=== PATIENT | male | born 1985 | race Caucasian/White ===

== ENCOUNTER 2016-06-28 10:05 | Emergency (ER) | payer BC, MEDICAID ==
[2016-06-28 10:18] VITALS: BP 137/90
[2016-06-28] MEDS ORDERED: KETOROLAC TROMETHAMINE 60 MG/2 ML VIAL IM ONE ×2 (10:30→10:41)
[2016-06-28] MEDS ORDERED: ACETAMINOPHEN 650 MG SUPP.RECT ONE (10:46)
--- NOTE | 2016-06-28 10:50 | ERNOTE ---
Back Pain ER HPI Date of Service: 06/28/16 Time Seen by Provider: 06/28/16 10:24 Source: patient Exam Limitations: no limitations Immunizations: IMMUNIZATION HX Immunizations Up to Date Yes History of Influenza Vaccine No Hx Pneumococcal Vaccination No Allergies/Adverse Reactions: Allergies acetaminophen [From Vicodin] Allergy (Mild, Verified 06/28/16 10:18) Itching codeine [Codeine] Allergy (Mild, Verified 06/28/16 10:18) Itching hydrocodone bitartrate [From Vicodin] Allergy (Mild, Verified 06/28/16 10:18) Itching Home Medications: HOME MEDICATIONS Esomeprazole Magnesium [Nexium] 20 mg PO DAILY 11/29/14 [Last Taken Unknown] Levofloxacin [Levaquin] 750 mg PO DAILY #10 tab 06/28/16 [Last Taken Unknown] Lubiprostone [Amitiza] 8 mcg PO BID 06/28/16 [Last Taken Unknown] Naproxen [Naprosyn] 500 mg PO BID PRN #60 tab 06/28/16 [Last Taken Unknown] Narrative: Pt. comes in with c/o back pain that started in the evening 4 days ago. Pt. denies any injury but does state that it worsens with a deep breath or cough but is not changed by palpation. Pt. does state that he has had a cough for three weeks and has purulent sputum. Pt. denies any SOB at rest, but does state that he has some mild SOB with activity. Pt. states that he has been taking Tylenol without relief. Review of Systems - Review of Systems Constitutional: Present: recent illness. Absent: fever, chills, weakness, fatigue, malaise EYE: Present: no symptoms reported ENT: Present: no symptoms reported Respiratory: Present: cough. Absent: shortness of breath, orthopnea, wheezing Cardiology: Present: no symptoms reported. Absent: chest pain, palpitations, edema Gastrointestinal/Abdominal: Present: no symptoms reported. Absent: nausea, vomiting, diarrhea Genitourinary: Present: no symptoms reported Musculoskeletal: Present: back pain - R upper back from T4-t10 Skin: Present: no symptoms reported. Absent: rash, change in color Neurological: Present: no symptoms reported. Absent: headache, dizziness/light- headedness, numbness, tingling All Other Systems: All systems neg except as marked - Patient's Past Medical History Patient History - Medical: GERD Patient History - Cardiac/Respiratory: Other - history of collapsed lung Patient History - Cancer: No Hx of Cancer Patient History - Surgical Procedures: Colonoscopy, EGD, Pneumothorax, Vasectomy - Family History Mother Family History - Medical: No pertinent hx Family History - Cardiac/Respiratory: Hypertension, Other Father Family History - Medical: No pertinent hx Family History - Cardiac/Respiratory: No pertinent hx - Social History Living Situations: spouse Smoking Status: Former smoker Have you smoked in the past 12 months: No Do you dip or chew tobacco: Yes Patient requests Smoking Cessation Consult: No Initiate information on Smoking Cessation: No Alcohol Use: rarely Drug Use: none Physical Exam - Physical Exam General Appearance: Present: wd/wn, alert, no apparent distress Eye Exam: Normal inspection: bilateral, PERRL: bilateral, EOMI: bilateral Ears, Nose, Throat: Present: hearing grossly normal, nasal congestion, sinus pain/drainage, normal pharynx Neck: Present: normal inspection, nontender. Absent: lymphadenopathy (R), lymphadenopathy (L) Respiratory: Present: no respiratory distress, no accessory muscle use, chest nontender, decreased breath sounds - LLL, rhonchi - RUL clears with cough Cardiovascular/Chest: Present: regular rate, rhythm, no murmur, normal peripheral pulses Gastrointestinal/Abdominal: Present: normal bowel sounds, nontender, nondistended, soft, no organomegaly Back Exam: Present: normal inspection, normal range of motion, no CVA tenderness , no vertebral tenderness Extremity Exam: Present: normal inspection, non-tender, no edema, normal range of motion Neurological Exam: Present: alert, oriented, normal mood/affect, no motor/ sensory deficits Skin Exam: Present: warm/dry, pallor. Absent: skin rash ED Progress - Vital Signs Patient's Vital Signs:: I have reviewed the patient's vital signs. Vital Signs: Vital Signs 06/28/16 10:12 Temperature 34.9 C L Pulse Rate 73 Respiratory 16 Rate Blood Pressure 137/90 O2 Sat by Pulse 99 Oximetry - X-Ray X-Ray #1 X-Ray: chest Interpretation: Interp. by me X-ray Comments: bronchial cuffing no consolidations - Progress/Reassessment Chief Complaint: Back Pain Departure Clinical Impression: Chest wall pain Acute bronchitis Qualifiers: Bronchitis organism: unspecified organism Qualified Code(s): J20.9 - Acute bronchitis, unspecified - Departure Disposition: Home self-care Condition: Good Instructions: Acute Bronchitis, [id number] Additional Instructions: Please follow up with primary provider in 2-3 days. Please take anti inflammatory for pain as prescribed. Please finish all antibiotics. May try a visit with the chiropractor for adjustment of back and ribs. Referrals: Vaibhav Pace MD [Primary Care Provider] - Prescriptions: Levofloxacin [Levaquin] 750 mg PO DAILY #10 tab Naproxen [Naprosyn] 500 mg PO BID PRN #60 tab PRN Reason: Pain
== END 2016-06-28 11:11 | disposition home or self-care (01) ==
LOC: ER 10:05
DX: R07.89 Other chest pain (principal); J20.9 Acute bronchitis, unspecified; Z87.891 Personal history of nicotine dependence

== ENCOUNTER 2016-08-28 09:53 | Day surgery (SDC) | payer BC, MEDICAID ==
[~2016-08-28 09:53] MED LIST: RINGERS SOLUTION,LACTATED 1,000 ML IV PRN; ceFAZolin SODIUM 1 GM VIAL IV PRN
--- OUTSIDE RECORDS SUMMARY | 2016-08-28 09:57 | XMS REPORT | Continuity of Care Document ---
:1985 Author Organization [facility] ([facility]) Address [address] [place] [address] Phone [phone] Care Team Providers Name Role Phone Unavailable Primary Care Provider Unavailable Source Comments This disclosure is being made pursuant to the Care Everywhere program, applicable federal and state laws, and may not contain all informaitonavailable regarding this patient.[facility] ([facility]) Active Allergies and Adverse Reactions Not on File Current Medications Not on file Active Problems Not on file Social History Tobacco Use Types Packs/Day Years Used Date Never Assessed Plan of Care Health Maintenance Due Date Last Done Comments Hepatitis B Vaccine (1 of 3 - Primary Series) 1985 Tdap Vaccine 12/22/1995 Lipid Disorder Screening 2002 MMR Vaccine 2002 Td Vaccine 2002 Varicella Vaccine (1 of 2 - Adult - No Evidence of 2002 Immunity) Influenza Vaccine: Seasonal (#1) 01/20/2016 Results from Last 3 Months Not on file
[2016-08-28] MEDS ORDERED: RINGERS SOLUTION,LACTATED 1,000 ML IV ONE (10:31)
[2016-08-28] MEDS ORDERED: BUPIVACAINE HCL 50 ML VIAL IJ ONE ×2 (11:40)
[2016-08-28 13:14] VITALS: BP 124/75
--- NOTE | 2016-08-28 15:25 | OR ---
Operative Report - Dictated Report Narrative: Date: 08/28/2016 Physician: Wili Clements M.D. [employer] Motor [employer] Generator Assembler: Ghassan Welch PA-C Preoperative diagnosis: Right carpal tunnel syndrome, right de Quervain's tenosynovitis Postoperative diagnosis: Right carpal tunnel syndrome, right de Quervain's tenosynovitis Procedure: Endoscopic right carpal tunnel release, release of first dorsal wrist compartment Anesthesia: MAC plus local Complications: None Estimated blood loss: Minimal Tourniquet time: 18 Minutes at 250 mmHg Specimens: None Retained implants: None Drains: None Indications: Mr. Soria Is a 30 who has been followed in my clinic with complaints of carpal tunnel syndrome as well as de Quervain's tenosynovitis. Physical exam as well as diagnostic testing showed compression of the median nerve compatible with carpal tunnel syndrome and his exam was consistent with de Quervain's tenosynovitis. Conservative measures have failed including but not limited to activity modification, medications, and/or bracing. The risks, benefits, and alternatives were discussed in clinic. The risks being bleeding, infection, nerve, tendon, blood vessel injury, persistent pain, wound competitions, weakness, palm pain, need for additional procedures, and persistent symptoms. Consent was obtained in the clinic. Procedure: After marking the correct extremity in the preoperative holding area, a timeout was performed in the operating room. IV antibiotics consisting of Ancef were administered prior to the procedure. A well-padded tourniquet was applied to the operative upper arm. The arm was exsanguinated and the tourniquet was inflated to 250 mmHg. 0.5% Marcaine without epinephrine was infused into the projected portal sites. Using Loupe magnification, a transverse incision was made in the proximal wrist flexion crease just ulnar to the ulnar to the palmaris longus tendon or in line with approximately the ring finger. Blunt dissection and hemostasis with bipolar cautery was utilized down to the forearm fascia. The forearm fascia was split longitudinally just ulnar to the palmaris longus exposing the entry into the carpal tunnel. A Lazbuddie was placed under the transverse carpal ligament elevating the soft tissues under the dorsal aspect of the transverse carpal ligament. This was confirmed to be under the transverse carpal ligament based on the corrugated nature of the tissue. Once we had removed soft tissues from the transverse carpal ligament, a blunt trocar and cannula was introduced under the transverse carpal ligament exiting the palm through a sofy incision. The hand was then placed in a extension holding device and the camera was introduced into the cannula. A probe was utilized in order to ensure that all soft tissues were elevated off the dorsal aspect of the transverse carpal ligament and ensuring that all tissues were running transversely. No vascular or neurologic tissues were visualized. The push, followed by probe, followed by hook blades was utilized to transect the distal one half of the transverse carpal ligament. This allowed for ingress of fat. The camera was then placed distally looking proximally, and the proximal one half of the transverse carpal ligament was transected using the hook blade. This again allowed for ingress of fat. The probe blade was utilized in order to release any additional remaining fibers. Once it was felt that the transverse carpal ligament was completely transected, the blunt trocar was reintroduced into the trocar and removed in whole. A Ragnell was utilized in order to visualize the carpal tunnel ensuring that the transverse carpal ligament was completely released using a Lazbuddie. The distal forearm fascia was released ensuring that the median nerve was completely decompressed utilizing tenotomy scissors. Once it was felt that all the tissues overlying the median nerve were completely released, the wounds were thoroughly irrigated with saline which passed freely from the proximal to distal portal holes. Next attention was turned to the first dorsal wrist compartment. A transverse incision was made approximately 1 cm proximal to the radial styloid. Blunt dissection was carried through the skin in order to protect the dorsal branches of the radial nerve surroundings neurovascular structures. Blunt dissection was also carried down to the extensor pollicis brevis and the abductor pollicis longus. The first dorsal compartment was released the dorsal aspect and it was noted there was a thin septum the 2 tendons as well as a distal muscle belly on the extensor pollicis brevis. Once was felt that we adequately released these tendons over the entire course of the retinaculum, a Z-plasty was performed of the retinaculum in order to place one suture to prevent future and stability. This was notably loose and did not result in any overall compression of the tendons. The risks placed through range of motion and it was noted that there is no instability. The thumb was placed through range of motion and it was also noted that there is no catching or instability. Additional half percent Marcaine was infused around the skin edges and the wounds were thoroughly irrigated. Tourniquet was deflated and hemostasis was obtained with pressure as well as bipolar cautery. Once bleeding had resolved and there was no excessive bleeding , the wounds were closed with interrupted nylon for the carpal tunnel. For the de Quervain's release the skin was closed with interrupted Vicryl and interrupted nylon. Xeroform, 4 x 4's, soft roll, and a well-padded dorsal short arm wrist splint was applied, and the patient was awoken and transferred to the postanesthesia care unit in stable condition. All sponge, needle, blade , and instrument counts were correct prior to closing the wounds. Additional 0.5% Marcaine without epinephrine was infused into the skin edges for pain control.
== END 2016-08-28 09:54 | disposition home or self-care (01) ==
LOC: AMB 09:53
PROVIDERS: ATTEND Orthopaedic Surgery
PROC: 01N54ZZ Release Median Nerve, Percutaneous Endoscopic Approach (ICD-10-PCS; principal; 2016-08-28 12:55)
PROC: 0LN50ZZ Release Right Lower Arm and Wrist Tendon, Open Approach (ICD-10-PCS; 2016-08-28 12:55)
DX: G56.01 Carpal tunnel syndrome, right upper limb (principal); M65.4 Radial styloid tenosynovitis [de Quervain]; R12 Heartburn; K58.9 Irritable bowel syndrome, unspecified; Z68.22 Body mass index [BMI] 22.0-22.9, adult; Z87.891 Personal history of nicotine dependence

== ENCOUNTER 2017-01-11 17:21 | Emergency (ER) | payer BC, MEDICAID ==
--- NOTE | 2017-01-11 17:47 | ERNOTE ---
Time Seen by Provider: 01/11/17 17:27 Stated Complaint: BREATHING ISSUES Presenting Symptoms:: cough Source: patient Exam Limitations: no limitations Immunizations: IMMUNIZATION HX Immunizations Up to Date Yes History of Influenza Vaccine No Hx Pneumococcal Vaccination No Allergies/Adverse Reactions: Allergies codeine [Codeine] Adverse Reaction (Mild, Verified 08/28/16 10:11) Itching, RASH hydrocodone bitartrate [From Vicodin] Adverse Reaction (Mild, Verified 08/28/16 10:11) Itching Home Medications: HOME MEDICATIONS Lubiprostone [Amitiza] 8 mcg PO BID 06/28/16 [Last Taken Unknown] Acetaminophen [Tylenol] 325 - 650 mg PO Q4H PRN 08/20/16 [Last Taken Unknown] Esomeprazole Magnesium [Nexium] 20 mg PO DAILY 08/20/16 [Last Taken Unknown] Gabapentin [Neurontin] 100 mg PO TID 08/20/16 [Last Taken Unknown] Vitamin D3 Complete 1 tab PO DAILY 08/20/16 [Last Taken Unknown] oxyCODONE HCL/ACETAMINOPHEN [Percocet 5 MG/325 MG] 1 - 2 tab PO Q4H PRN #60 tab 08/28/16 [Last Taken Unknown] - History of Present Ilness Narrative: Patient has had a cough for a couple of days. Last night he started to have slight pain by his left shoulder blade, he was able to sleep but had more pain this am, has not taken any pain meds yet, pain is worse with coughing, deep breath and moving. He is concerned as he had a spontaneous pneumothorax about ten years ago and thinks this feels similar to that Frequency/Possible Cause: Reports: occasional episodes Modifying Factors - Worsens: Reports: coughing, deep breath Associated Symptoms: Denies: headache, fever/chills Prior Treatment: Denies: recently seen, currently on antibiotics Review of Systems - Review of Systems Constitutional: Absent: fever, chills ENT: Absent: nose congestion, nasal drainage, sore throat Respiratory: Present: See HPI, cough Cardiology: Absent: chest pain Gastrointestinal/Abdominal: Absent: nausea, vomiting, diarrhea, abdominal pain Genitourinary: Present: no symptoms reported Musculoskeletal: Absent: back pain Skin: Absent: rash Neurological: Absent: headache, weakness, numbness - Patient's Past Medical History Patient History - Medical: GERD, Other - anger problems Patient History - Cardiac/Respiratory: No pertinent hx Patient History - Cancer: No Hx of Cancer Patient History - Surgical Procedures: Colonoscopy, EGD, Pneumothorax, Vasectomy , Orthopedic Patient History - Other: None - Family History Mother Family History - Medical: No pertinent hx Family History - Cardiac/Respiratory: Hypertension, Other Father Family History - Medical: No pertinent hx Family History - Cardiac/Respiratory: No pertinent hx Family History - Cancer: No pertinent family hx - Social History Living Situations: home Abuse History: No History of abuse Psych History: Psychiatric Hx, Current tx/ever been on anti-depressants or anti- anxiety meds Smoking Status: Former smoker Have you smoked in the past 12 months: Yes Do you dip or chew tobacco: Yes Alcohol Use: rarely Drug Use: none - Immunizations Immunizations Up to Date: Yes Hx Pneumococcal Vaccination: No History of Influenza Vaccine: No Physical Exam - Physical Exam General Appearance: Present: wd/wn, alert, no apparent distress Eye Exam: Normal inspection: bilateral, PERRL: bilateral Ears, Nose, Throat: Present: normal ENT inspection, normal pharynx Neck: Absent: lymphadenopathy (L) Respiratory: Present: no respiratory distress, normal breath sounds, no accessory muscle use, lungs clear, chest tenderness - muscle spasm and tenderness left side between scapular and spine Cardiovascular/Chest: Present: regular rate, rhythm, no murmur Gastrointestinal/Abdominal: Present: nontender Back Exam: Present: normal inspection, no vertebral tenderness, muscle spasm Neurological Exam: Present: alert, oriented, normal mood/affect Skin Exam: Present: normal color, warm/dry ED Progress - Vital Signs Patient's Vital Signs:: I have reviewed the patient's vital signs. Vital Signs: Vital Signs 01/11/17 17:27 Temperature 37.3 C Pulse Rate 103 H Respiratory 18 Rate Blood Pressure 144/92 O2 Sat by Pulse 99 Oximetry - X-Ray X-Ray #1 X-Ray: chest - no acute changes Interpretation: Reviewed by me - Progress/Reassessment Chief Complaint: Upper Respiratory Symptoms Progress Note-Subjective: 01/11/17 18:15 explained results Departure - Departure Clinical Impression: Thoracic back pain Disposition: Home self-care Condition: Good Instructions: Back Pain, Adult, [id number] Additional Instructions: take over the counter ibuprofen (200mg) three every six hours as needed Referrals: Vaibhav Pace MD [Primary Care Provider] -
[2017-01-11] MEDS ORDERED: IBUPROFEN 600 MG TABLET ONE (17:48)
[2017-01-11] MEDS: IBUPROFEN 600 MG TABLET PO ONE (17:49)
[2017-01-11 18:21] VITALS: BP 138/89
== END 2017-01-11 18:19 | disposition home or self-care (01) ==
LOC: ER 17:21
DX: M54.6 Pain in thoracic spine (principal); R05 Cough; Z87.891 Personal history of nicotine dependence

== ENCOUNTER 2017-01-18 12:36 | Emergency (ER) | payer BC, MEDICAID ==
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
[2017-01-18 13:08] LABS: Urine Bilirubin Negative (NEGATIVE); Urine Blood Negative /ul (NEGATIVE); Urine Ketone Negative (NEGATIVE); Urine Nitrite Negative (NEGATIVE); Urine Protein Negative (NEGATIVE); Urine Specific Gravity <=1.005 SP.GR. (1.005-1.030); Urine Urobilinogen Normal (NORMAL)
[2017-01-18 13:26] LABS: Urine Appearance Clear; Urine Bacteria None Seen; Urine Color Pale Yellow; Urine RBC None Seen /hpf (0-5); Urine WBC None Seen /hpf (0-5)
[2017-01-18 13:35] VITALS: BP 138/94
== END 2017-01-18 13:51 | disposition home or self-care (01) ==
LOC: ER 12:36
DX: S30.22XA Contusion of scrotum and testes, initial encounter (principal); X58.XXXA Exposure to other specified factors, initial encounter; Y93.9 Activity, unspecified; Y92.9 Unspecified place or not applicable; K21.9 Gastro-esophageal reflux disease without esophagitis

== ENCOUNTER 2017-01-22 22:09 | Emergency (ER) | payer BC, MEDICAID ==
[2017-01-22 22:19] VITALS: BP 139/95
--- NOTE | 2017-01-22 22:45 | ERNOTE ---
Medical Problem HPI - Narrative Date of Service: 01/22/17 - General Chief Complaint: Laceration Time Seen by Provider: 01/22/17 22:27 Source: patient Exam Limitations: no limitations - Immun/Allergies/Home Medications Immunizations: IMMUNIZATION HX Immunizations Up to Date Yes History of Influenza Vaccine No Hx Pneumococcal Vaccination No Allergies/Adverse Reactions: Allergies codeine [Codeine] Adverse Reaction (Mild, Verified 01/18/17 12:54) Itching, RASH hydrocodone bitartrate [From Vicodin] Adverse Reaction (Mild, Verified 01/18/17 12:54) Itching Home Medications: HOME MEDICATIONS Esomeprazole Magnesium [Nexium] 20 mg PO DAILY 08/20/16 [Last Taken Unknown] Lubiprostone [Amitiza] 8 mcg PO BID 01/18/17 [Last Taken Unknown] Risperdal 0.5 mg PO DAILY 01/18/17 [Last Taken Unknown] Topiramate [Topamax] 50 mg PO BID 01/18/17 [Last Taken Unknown] clonazePAM [Klonopin] 0.5 mg PO HS 01/18/17 [Last Taken Unknown] lamoTRIgine [Lamictal] 25 mg PO BID 01/18/17 [Last Taken Unknown] - History of Present History Narrative: 31 year old that was cleaning under a seat and sustained a laceration at the left index finger. No complaints of loss of sensation or function. Timing: constant Severity: mild Modifying Factors - (Improves): Present: other - nothing Modifying Factors - (Worsens): Present: other - nothing Review of Systems - Review of Systems Constitutional: Present: no symptoms reported EYE: Present: no symptoms reported ENT: Present: no symptoms reported Respiratory: Present: no symptoms reported Cardiology: Present: no symptoms reported Gastrointestinal/Abdominal: Present: no symptoms reported Genitourinary: Present: no symptoms reported Skin: Present: no symptoms reported Neurological: Present: no symptoms reported All Other Systems: All systems neg except as marked - Patient's Past Medical History Patient History - Medical: Anxiety, GERD, Other Patient History - Cardiac/Respiratory: No pertinent hx Patient History - Cancer: No Hx of Cancer Patient History - Surgical Procedures: Vasectomy, Other Patient History - Other: None - Family History Mother Family History - Medical: No pertinent hx Family History - Cardiac/Respiratory: Hypertension, Other Father Family History - Medical: No pertinent hx Family History - Cardiac/Respiratory: No pertinent hx Family History - Cancer: No pertinent family hx - Social History Living Situations: spouse Abuse History: No History of abuse Psych History: Psychiatric Hx, Current tx/ever been on anti-depressants or anti- anxiety meds Smoking Status: Former smoker Have you smoked in the past 12 months: No Do you dip or chew tobacco: No Alcohol Use: occasionally Drug Use: none - Immunizations Immunizations Up to Date: Yes Hx Pneumococcal Vaccination: No History of Influenza Vaccine: No Physical Exam - Physical Exam General Appearance: Present: no apparent distress Head Exam: Present: normal inspection Eye Exam: Normal inspection: bilateral Ears, Nose, Throat: Present: normal ENT inspection Neck: Present: normal inspection Respiratory: Present: no respiratory distress Cardiovascular/Chest: Present: regular rate, rhythm Gastrointestinal/Abdominal: Present: nondistended Back Exam: Present: normal inspection Extremity Exam: Present: other - left index finger-5 mm laceration of the tibial dorsal aspect of the index finger at the middle phalanx. Incision and motor was intact distally, there is no tendon involvement. Neurological Exam: Present: alert, oriented Skin Exam: Present: normal color ED Progress - Vital Signs Vital Signs: Vital Signs 01/22/17 22:13 Temperature 36.6 C Pulse Rate 88 Respiratory 16 Rate Blood Pressure 139/95 O2 Sat by Pulse 97 Oximetry - Progress/Reassessment Chief Complaint: Laceration Procedures Left 2nd Digit Anesthesia: 1% Lidocaine I & D Prep: betadine prep, other - soap and water Wound's Depth/Shape: into subcutaneous Wound Explored: clean Foreign body identified: other - none Distal NVT: neuro/vasc intact Suture Size/Type: 4-0 Number of Sutures: 2 Layer Closure: Simple Estimated blood loss (ml): 3 Wound Dressing: sterile dressing applied Complications: Pt prachi procedure well Departure - Departure Clinical Impression: Finger laceration Disposition: Home self-care Condition: Good Instructions: Suture Removal, Care After, Laceration Care, Adult, [id number] Print Language: Tuvaluan Additional Instructions: You can use Tylenol or Motrin for pain relief. The sutures should be removed in 10 days. Referrals: Vaibhav Pace MD [Primary Care Provider] -
== END 2017-01-22 22:49 | disposition home or self-care (01) ==
LOC: ER 22:09
PROC: 0JQK0ZZ Repair Left Hand Subcutaneous Tissue and Fascia, Open Approach (ICD-10-PCS; principal; 2017-01-22)
DX: S61.211A Laceration without foreign body of left index finger without damage to nail, initial encounter (principal); W45.8XXA Other foreign body or object entering through skin, initial encounter; Y93.89 Activity, other specified; Y92.9 Unspecified place or not applicable; Y99.9 Unspecified external cause status; K21.9 Gastro-esophageal reflux disease without esophagitis

== ENCOUNTER 2017-04-10 17:47 | Emergency (ER) | payer BC, MEDICAID ==
[2017-04-10 17:55] VITALS: BP 136/91
--- NOTE | 2017-04-10 18:06 | ERNOTE ---
[facility] Date of Service: 04/10/17 Presenting Symptoms: other - Sore throat Time Seen by Provider: 04/10/17 18:03 Source: patient, RN notes reviewed Exam Limitations: no limitations - Immun/Allergies/Home Medications Immunizations: IMMUNIZATION HX Immunizations Up to Date Yes History of Influenza Vaccine No Hx Pneumococcal Vaccination No Allergies/Adverse Reactions: Allergies Allergy/AdvReac Type Severity Reaction Status Date / Time codeine [Codeine] AdvReac Mild Itching, Verified 04/10/17 17:55 RASH hydrocodone bitartrate AdvReac Mild Itching Verified 04/10/17 17:55 [From Vicodin] Home Medications: HOME MEDICATIONS Esomeprazole Magnesium [Nexium] 20 mg PO DAILY 08/20/16 [Last Taken Unknown] Lubiprostone [Amitiza] 8 mcg PO BID 01/18/17 [Last Taken Unknown] Risperdal 0.5 mg PO DAILY 01/18/17 [Last Taken Unknown] Topiramate [Topamax] 50 mg PO BID 01/18/17 [Last Taken Unknown] clonazePAM [Klonopin] 0.5 mg PO HS 01/18/17 [Last Taken Unknown] lamoTRIgine [Lamictal] 25 mg PO BID 01/18/17 [Last Taken Unknown] - History of Present Illness Narrative: 31 year old male ambulatory to the ED with a sore throat. He has just finished 10 days of amoxicillin for strep throat and is concerned that he has it again. He denies fever, headache, nausea and abdominal pain. He reports feeling like there is something in the back of his throat that is stuck, but starts to come up when he clears his throat. ENT Location: Present: throat Prearrival Treatment: Present: no prearrival treatment Associated Symptoms - ENT: Reports: sore throat. Denies: fever, malaise, poor fluid intake, poor solid intake, cough, voice change, facial pain/swelling, tooth pain, jaw swelling, ear drainage, headache Review of Systems - Review of Systems Constitutional: Present: recent illness. Absent: fever, chills, malaise EYE: Present: no symptoms reported ENT: Present: sore throat. Absent: ear pain, nose congestion, nasal drainage Respiratory: Absent: shortness of breath, cough Cardiology: Present: no symptoms reported Gastrointestinal/Abdominal: Absent: nausea, vomiting, abdominal pain Genitourinary: Present: no symptoms reported Musculoskeletal: Absent: muscle pain, neck pain Skin: Absent: rash, lesions, lumps Neurological: Absent: headache, dizziness/light-headedness Endocrine: Present: no symptoms reported Hematologic/Lymphatic: Present: no symptoms reported Psych: Present: no symptoms reported - Patient's Past Medical History Patient History - Medical: No pertinent hx Patient History - Cardiac/Respiratory: No pertinent hx Patient History - Cancer: No Hx of Cancer Patient History - Surgical Procedures: Pneumothorax, Vasectomy, Orthopedic Patient History - Other: None - Family History Mother Family History - Medical: No pertinent hx Family History - Cardiac/Respiratory: Hypertension, Other Father Family History - Medical: No pertinent hx Family History - Cardiac/Respiratory: No pertinent hx Family History - Cancer: No pertinent family hx - Social History Living Situations: spouse Abuse History: No History of abuse Psych History: Psychiatric Hx, Current tx/ever been on anti-depressants or anti- anxiety meds Smoking Status: Former smoker Have you smoked in the past 12 months: No Do you dip or chew tobacco: Yes Alcohol Use: occasionally Drug Use: none - Immunizations Immunizations Up to Date: Yes Hx Pneumococcal Vaccination: No History of Influenza Vaccine: No Physical Exam - Physical Exam General Appearance: Present: wd/wn, alert, no apparent distress Head Exam: Present: normal inspection Ears, Nose, Throat: Present: pharyngeal erythema, other - uvula inflammed and edematous. Absent: abnormal TM (R), abnormal TM (L), nasal congestion, sinus pain/drainage, pharyngeal swelling, tonsillar swelling Neck: Present: normal inspection, nontender, supple. Absent: lymphadenopathy (R ), lymphadenopathy (L) Respiratory: Present: no respiratory distress, normal breath sounds, no accessory muscle use, lungs clear Cardiovascular/Chest: Present: regular rate, rhythm, no murmur Neurological Exam: Present: alert, oriented, normal mood/affect Skin Exam: Present: normal color, warm/dry ED Progress - Results and Orders Patient's Lab Results:: I have reviewed the patient's lab results. - Vital Signs Patient's Vital Signs:: I have reviewed the patient's vital signs. Vital Signs: Vital Signs 04/10/17 17:51 Temperature 37.4 C Pulse Rate 79 Respiratory 16 Rate Blood Pressure 136/91 O2 Sat by Pulse 99 Oximetry - Progress/Reassessment Chief Complaint: Sore Throat Progress:: Unchanged Departure Clinical Impression: Acute viral pharyngitis - Departure Disposition: Home Follow Up Needed Condition: Stable Instructions: Sore Throat, [id number] Additional Instructions: Drink plenty of liquids Consider seeing ENT if symptoms continue Referrals: Vaibhav Pace MD [Primary Care Provider] -
== END 2017-04-10 18:53 | disposition home or self-care (01) ==
LOC: ER 17:47
DX: J02.9 Acute pharyngitis, unspecified (principal)

== ENCOUNTER 2017-04-27 05:32 | Emergency (ER) | payer BC, MEDICAID ==
[2017-04-27 05:41] VITALS: BP 131/86
[2017-04-27] MEDS ORDERED: KETOROLAC TROMETHAMINE 60 MG/2 ML VIAL IM ONE ×2 (06:15→06:16)
--- NOTE | 2017-04-27 06:36 | ERNOTE ---
ENT HPI Presenting Symptoms: other - sore throat Time Seen by Provider: 04/27/17 06:04 Source: patient Exam Limitations: no limitations - Immun/Allergies/Home Medications Immunizations: IMMUNIZATION HX Immunizations Up to Date Yes History of Influenza Vaccine No Hx Pneumococcal Vaccination No Allergies/Adverse Reactions: Allergies Allergy/AdvReac Type Severity Reaction Status Date / Time codeine [Codeine] AdvReac Mild Itching, Verified 04/27/17 05:41 RASH hydrocodone bitartrate AdvReac Mild Itching Verified 04/27/17 05:41 [From Vicodin] Home Medications: HOME MEDICATIONS Esomeprazole Magnesium [Nexium] 20 mg PO DAILY 08/20/16 [Last Taken Unknown] Lubiprostone [Amitiza] 8 mcg PO BID 01/18/17 [Last Taken Unknown] Risperdal 0.5 mg PO DAILY 01/18/17 [Last Taken Unknown] Topiramate [Topamax] 50 mg PO BID 01/18/17 [Last Taken Unknown] clonazePAM [Klonopin] 0.5 mg PO HS 01/18/17 [Last Taken Unknown] lamoTRIgine [Lamictal] 25 mg PO BID 01/18/17 [Last Taken Unknown] Gabapentin 900 mg PO TID 04/27/17 [Last Taken Unknown] Nabumetone 750 mg PO BID #20 tablet 04/27/17 [Last Taken Unknown] - History of Present Illness Narrative: Pt woke up yesterday with a "scratchy throat" which worsened overnight and now has painful throat with swollen uvula. States this has happed 3 times this year. Severity: Present: moderate ENT Location: Present: throat Prearrival Treatment: Present: over the counter meds - "not working" Modifying Factors - Worsens: Reports: coughing, lying down Associated Symptoms - ENT: Reports: poor solid intake Review of Systems - Review of Systems Constitutional: Present: chills - felt cold at home. Absent: fever EYE: Present: no symptoms reported ENT: Present: See HPI Respiratory: Absent: cough Cardiology: Absent: chest pain Gastrointestinal/Abdominal: Absent: nausea, vomiting Genitourinary: Present: no symptoms reported Musculoskeletal: Present: no symptoms reported Skin: Absent: rash Neurological: Absent: headache Endocrine: Present: no symptoms reported Hematologic/Lymphatic: Present: no symptoms reported Psych: Present: anxiety - Patient's Past Medical History Patient History - Medical: Anxiety Patient History - Cardiac/Respiratory: No pertinent hx Patient History - Cancer: No Hx of Cancer Patient History - Surgical Procedures: Pneumothorax, Vasectomy, Orthopedic Patient History - Other: None - Family History Mother Family History - Medical: No pertinent hx Family History - Cardiac/Respiratory: Hypertension, Other Father Family History - Medical: No pertinent hx Family History - Cardiac/Respiratory: No pertinent hx Family History - Cancer: No pertinent family hx - Social History Living Situations: home Abuse History: No History of abuse Psych History: Psychiatric Hx, Current tx/ever been on anti-depressants or anti- anxiety meds Smoking Status: Former smoker Alcohol Use: occasionally Drug Use: none - Immunizations Immunizations Up to Date: Yes Hx Pneumococcal Vaccination: No History of Influenza Vaccine: No Physical Exam - Physical Exam General Appearance: Present: wd/wn, alert, mild distress Head Exam: Present: normal inspection, no evidence of injury Eye Exam: Normal inspection: bilateral Ears, Nose, Throat: Present: nasal congestion - with mild erythema, other - normal tonsils with mild uvular swelling and long uvula that rests on the posterior tongue. 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 Results and Orders: Laboratory Tests 04/27/17 05:47 Group A Strep Rapid Negative - Vital Signs Vital Signs: Vital Signs 04/27/17 05:37 Temperature 36.8 C Pulse Rate 85 Respiratory 16 Rate Blood Pressure 131/86 O2 Sat by Pulse 99 Oximetry - Progress/Reassessment Chief Complaint: Sore Throat Progress Note-Subjective: 04/27/17 06:10 discussed use of NSAIDS for pain and swelling and talking to his PCP about referral to ENT if this continues to happen Departure Clinical Impression: Uvular swelling - Departure Disposition: Home Follow Up Needed Condition: Good Instructions: Uvulitis Additional Instructions: See your primary care physician or an ENT for further treatment if you continue to have problems. Referrals: Vaibhav Pace MD [Primary Care Provider] -
== END 2017-04-27 06:22 | disposition home or self-care (01) ==
LOC: ER 05:32
DX: R07.0 Pain in throat (principal)

== ENCOUNTER 2017-09-03 08:00 | Day surgery (SDC) | payer BC, MEDICAID ==
[~2017-09-03 08:00] MED LIST changes: +ACETAMINOPHEN 500 MG TABLET PO PRN; +HYDROmorphone HCL 2 MG/ML VIAL IV PRN; +MAG HYDROX/ALUMINUM HYD/SIMETH 30 ML UDC PO PRN; +MAGNESIUM HYDROXIDE 30 ML UDC PO PRN; +ONDANSETRON HCL/PF 2 MG/ML VIAL IV PRN; +PROMETHAZINE HCL 25 MG in DEXTROSE 5 % IN WATER 50 ML IV PRN; +RINGER'S SOLUTION,LACTATED 1,000 ML IV PRN; -RINGERS SOLUTION,LACTATED 1,000 ML IV PRN; +ZOLPIDEM TARTRATE 5 MG TABLET PO PRN; +diphenhydrAMINE HCL 50 MG/ML VIAL IV PRN; +oxyCODONE HCL/ACETAMINOPHEN 1 TAB TABLET PO PRN
[2017-09-03] MEDS ORDERED: RINGER'S SOLUTION,LACTATED 1,000 ML IV ONE ×2 (08:41→11:27)
[2017-09-03] MEDS ORDERED: BUPIVACAINE HCL 50 ML VIAL IJ ONE (11:30)
--- NOTE | 2017-09-03 11:50 | POSTOP NO ---
Date of Surgery: 09/03/17 Patient Tolerated the Procedure: Well Post Operative Diagnosis/Procedures: Instrument And Control Technician: None Post-operative Diagnosis: Recurrent right de Quervain's tenosynovitis, right wrist pain Finding: Above Procedure: Exploration of right de Quervain's incision with release of first and second dorsal compartments Estimated Blood Loss: Minimal Specimens: None
[2017-09-03 13:41] VITALS: BP 140/84
[2017-09-03] MEDS ORDERED: SENNOSIDES/DOCUSATE SODIUM 1 TAB TABLET PO SCH (21:00)
== END 2017-09-03 08:01 | disposition home or self-care (01) ==
LOC: AMB 08:00
PROVIDERS: ATTEND Orthopaedic Surgery
PROC: 0LN50ZZ Release Right Lower Arm and Wrist Tendon, Open Approach (ICD-10-PCS; principal; 2017-09-03)
DX: K58.9 Irritable bowel syndrome, unspecified; M65.4 Radial styloid tenosynovitis [de Quervain]; Z68.23 Body mass index [BMI] 23.0-23.9, adult; F17.200 Nicotine dependence, unspecified, uncomplicated; F31.9 Bipolar disorder, unspecified